=== PATIENT | female | born 1965 | race Caucasian/White ===

== ENCOUNTER 2016-09-01 15:53 | Emergency (ER) | payer SELFPAY ==
--- NOTE | 2016-09-01 16:43 | RAD ---
HISTORY: Patient fell 4 months ago. Knee gave out earlier today. Initial encounter. COMPARISON: Plain films on 02/09/2014. TECHNIQUE: four views of Right knee. FINDINGS: Bones: No fracture or dislocation. Joints: Normal. Soft tissue: There may be a small joint effusion. Soft tissue calcification is noted within the posterior lateral aspect. IMPRESSION: No fracture or dislocation.
== END 2016-09-01 18:41 | disposition home or self-care (01) ==
LOC: ED 15:53
DX: M25.461 Effusion, right knee (principal); I10 Essential (primary) hypertension; W18.30XA Fall on same level, unspecified, initial encounter; Y92.9 Unspecified place or not applicable